=== PATIENT | male | born 1965 | race Caucasian/White ===

== ENCOUNTER 2017-12-29 01:03 | Emergency (ER) | payer MEDICARE ==
[~2017-12-29] VITALS: Ht 170.2 cm; Wt 87.1 kg
[~2017-12-29 01:03] MED LIST: ASPIRIN CHEW81 MG PO; CLONAZEPAM0.5 MG PO; CRESTOR10 MG PO; FENOFIBRATE145 MG PO; GABAPENTIN300 MG PO; LOSARTAN POTAS100 MG PO; METFORMIN HCL1000 M1 PO; NORCO 5-325 TA1 EACH PO; PANTOPRAZOLE SO40 MG PO; PLAVIX75 MG PO; TAMSULOSIN HCL0.4 MG PO; TRINTELLIX PO
--- OUTSIDE RECORDS SUMMARY | 2017-12-29 01:06 | XMS REPORT | Clinical Summary ---
Author Author [facility] Address Unknown Phone Unavailable Care Team Providers Care Orthopedic Nurse Practitioner Name Role Phone PCP Unavailable Allergies Not on File Current Medications Not on file Active Problems Not on file Social History Tobacco Use Types Packs/Day Years Used Date Never Assessed Sex Assigned at Date Recorded Not on file Last Filed Vital Signs Not on file Plan of Treatment Not on file Results Not on fileafter 12/28/2016
--- OUTSIDE RECORDS SUMMARY | 2017-12-29 01:06 | XMS REPORT ---
Author Author [facility] Address Unknown Phone Unavailable Care Team Providers Care Bat Lathe Operator Name Role Phone Evelin CALHOUN Unavailable Unavailable Problems This patient has no known problems. Allergies, Adverse Reactions, Alerts This patient has no known allergies or adverse reactions. Medications This patient has no known medications. Results Test Description Test Time Test Comments Text Results Atomic Results Result Comments CHEST SINGLE (NOT PORTABLE) [place] [address] Patient Name: TATA HOWELL MR #: [id number] : 1965 Age/Sex: 51/M Req #: [id number] Adm Physician: Ordered by: GREYSON CALHOUN MD Report #: [id number] Location: ER Room/Bed: Procedure: [id number] DX/CHEST SINGLE (NOT PORTABLE) Exam Date: 11/09/16 Exam Time: 5 REPORT STATUS: Signed EXAMINATION: CHEST SINGLE (NOT PORTABLE) INDICATION: Chest pain COMPARISON: 07/21/2016 FINDINGS: TUBES and LINES: None. LUNGS: Lungs are well inflated. Lungs are clear. There is mild prominence of the central pulmonary vasculature, consistent with pulmonary venous congestion. PLEURA: No pleural effusion or pneumothorax. HEART AND MEDIASTINUM: The cardiomediastinal silhouette is unremarkable. BONES AND SOFT TISSUES: No acute osseous lesion. Soft tissues are unremarkable. UPPER ABDOMEN: No free air under the diaphragm. IMPRESSION: No acute thoracic abnormality. Signed by: Dr. Lester Boykin M.D. on 11/09/2016 10:42 PM Dictated By: LESTER MILIAN MD 41 Transcribed By: ALLYSON on 11/09/162241 COPY TO: GREYSON CALHOUN MD
[2017-12-29] MEDS ORDERED: ONDANSETRON HCL INJ 2 MG/ML VIAL IM STA (01:49)
[2017-12-29] MEDS ORDERED: SODIUM CHLORIDE 0.9% 1000ML 1,000 ML IV STA (01:49)
[2017-12-29 02:15] LABS: BASOPHILS # (AUTO) 0.1 (0.0-0.1); BASOPHILS % 1.3 % (0.0-1.0); EOSINOPHILS # (AUTO) 0.1 (0.0-0.4); HEMATOCRIT 46.6 % (38.2-49.6); HEMOGLOBIN 15.4 g/dL (14.0-18.0); LYMPHOCYTES % 34.8 % (18.0-39.1); MEAN CORPUSCULAR HEMOGLOBIN 27.1 pg (28-32); MONOCYTES # (AUTO) 0.7 (0.2-0.8); MONOCYTES % 7.6 % (4.4-11.3); NEUTROPHILS # (AUTO) 4.8 (2.1-6.9); PLATELET COUNT 221 x10e3/uL (140-360); RED BLOOD COUNT 5.68 x10e6/uL (4.3-5.7); RED CELL DISTRIBUTION WIDTH 14.6 % (11.7-14.4)
[2017-12-29 02:23] LABS: INR 0.81
[2017-12-29 02:24] LABS: PARTIAL THROMBOPLASTIN TIME 25.9 seconds (23.8-35.5)
[2017-12-29 02:31] LABS: ALANINE AMINOTRANSFERASE 27 IU/L (0-55); ALBUMIN 3.6 g/dL (3.5-5.0); ALKALINE PHOSPHATASE 127 IU/L (40-150); AMYLASE 53 U/L (25-125); ANION GAP 15.8 mmol/L (8-16); BLOOD UREA NITROGEN 9 mg/dL (7-26); BUN/CREATININE RATIO 10 (6-25); CALCIUM 9.6 mg/dL (8.4-10.2); CARBON DIOXIDE 23 mmol/L (22-29); CHLORIDE 101 mmol/L (98-107); CREATINE KINASE 80 IU/L (30-200); EST GLOMERULAR FILTRATION RATE > 60 ML/MIN (60-); GLUCOSE 281 mg/dL (74-118); LIPASE 28 U/L (8-78); POTASSIUM 3.8 mmol/L (3.5-5.1); SODIUM 136 mmol/L (136-145)
--- NOTE | 2017-12-29 03:21 | Diagnostic Imaging Report ---
EXAM: CT ABDOMEN/PELVIS W DATE: 12/29/2017 1:49 AM INDICATION: Abdominal pain COMPARISON: None TECHNIQUE: The abdomen and pelvis were scanned using a multidetector helical scanner. Coronal and sagittal reformations were obtained. CT low dose techniques were utilized, as applicable. IV Contrast: 100 ml Isovue 300/370 FINDINGS: LOWER THORAX: No consolidations LIVER/BILIARY: Likely underlying hepatic steatosis. Multiple subcentimeter too small to characterize liver hypodensities. No ductal dilatation. GALLBLADDER: Surgically absent SPLEEN: Unremarkable PANCREAS: Unremarkable ADRENALS: No nodules KIDNEYS: No suspicious renal masses. No hydronephrosis. Nonobstructing right nephrolithiasis, measuring 3 mm of the right inferior pole. GI TRACT: No wall thickening or evidence of obstruction. Diverticulosis with subtle inflamed hyperdense diverticula of the sigmoid colon on image 64. Normal appendix. VESSELS: Moderate to severe atherosclerotic changes. PERITONEUM/RETROPERITONEUM: No free air or fluid LYMPH NODES: No lymphadenopathy REPRODUCTIVE ORGANS/BLADDER: Unremarkable SOFT TISSUES: Rectus muscle diastases. BONES: No suspicious bone lesions. IMPRESSION: Acute uncomplicated sigmoid diverticulitis. Signed by: Dr Antonella Jean MD on 12/29/2017 3:18 AM
[2017-12-29 03:26] LABS: BILIRUBIN,URINE NEGATIVE (NEGATIVE); CLARITY,URINE CLEAR (CLEAR); COLOR,URINE YELLOW (YELLOW); KETONES,URINE NEGATIVE (NEGATIVE); LEUKOCYTE ESTERASE ,URINE NEGATIVE (NEGATIVE); NITRITE,URINE NEGATIVE (NEGATIVE); PROTEIN,URINE DIPSTICK NEGATIVE (NEGATIVE); URINE UROBILINOGEN 0.2 mg/dL (0.2 - 1)
[2017-12-29 03:33] LABS: BACTERIA,URINE RARE /HPF; EPITHELIAL CELLS,URINE RARE /LPF; MUCUS,URINE FEW (RARE); RBC,URINE 0-5 /HPF (0-5); WBC,URINE (MAN) 0-5 /HPF (0-5)
--- NOTE | 2017-12-29 04:22 | Diagnostic Imaging Report ---
CHEST SINGLE (PORTABLE), 12/29/2017 1:49 AM Technique: CHEST SINGLE (PORTABLE) Comparison: 11/08/2016. Clinical history: Abdominal pain Findings: Stable prominent cardiomediastinal silhouette, accentuated by limited portable AP technique. Central vascular congestion. No consolidation, effusion or pneumothorax. Impression: 1. Lines/Tubes: None 2. No acute abnormality. Signed by: Dr Antonella Jean MD on 12/29/2017 4:19 AM
[2017-12-29] MEDS ORDERED: METRONIDAZOLE 500 MG TAB PO ONE (04:30)
[2017-12-29] MEDS ORDERED: LEVOFLOXACIN 500 MG TAB PO ONE (04:30)
[2017-12-29] MEDS ORDERED: SODIUM CHLORIDE 0.9% 50ML 50 ML ONE (05:04)
[2017-12-29] MEDS ORDERED: IOPAMIDOL 370 MG/ML 200 ML INFUS..BTL INJ ONE (05:04)
== END 2017-12-29 05:32 | disposition home or self-care (01) ==
LOC: ER 01:03
DX: R10.11 Right upper quadrant pain (principal); K57.32 Diverticulitis of large intestine without perforation or abscess without bleeding
CPT/HCPCS: 36415; 71045; 74177; 80053; 81001; 82150; 82550; 82553; 83690; 84484; 85025; 85610; 85730; 96374; 99284; J2405; J7030; Q9967